=== PATIENT | female | born 1980 | race Caucasian/White ===

== ENCOUNTER 2020-06-02 09:23 | Outpatient (CLI) | payer OTHER, SELFPAY ==
--- NOTE | ~2020-06-02 | CT_ITS ---
EXAMINATION: CT soft tissue neck chest w DATE: 06/02/2020 10:05 INDICATION: Localized enlarged lymph nodes. TECHNIQUE: Computed tomography (CT) of the neck and chest was performed with 75 mL Omnipaque-350 intr avenous contrast. Automated exposure control and iterative reconstruction technique were employed. Th e dose-length product was 631.85 mGy-cm. COMPARISON: Abdomen ultrasound 10/02/2009 FINDINGS: NECK CT: There are no pathologically enlarged lymph nodes. There is mild plaque in the proximal inter nal carotid arteries with 0% stenosis relative to normal distal artery lumen diameters. There is mild mucosal thickening in the maxillary sinuses. The mastoid air cells are normal. There is moderate cer vical spondylosis. CHEST CT: There is mild dependent atelectasis bilaterally. No pleural effusion. The heart size is nor mal. No pericardial effusion. There are no pathologically enlarged lymph nodes. Partially visualized is a 3.1 cm hyperenhancing mass in left hepatic lobe. There is mild thoracic spondylosis. IMPRESSION: 1. No lymphadenopathy. 2. Partially visualized 3.1 cm hyperenhancing liver mass that was not seen on the prior ultrasound. T he differential diagnosis includes focal nodular hyperplasia, hemangioma, and less likely malignancy. Abdomen MRI without and with contrast is recommended. Reviewed, dictated and finalized at location A. IMPRESSION: 1. No lymphadenopathy. 2. Partially visualized 3.1 cm hyperenhancing liver mass that was not seen on t prior ultrasound. The differential diagnosis includes focal nodular hyperpla anand, hemangioma, and less likely malignancy. Abdomen MRI without and with contr ast is recommended.
== END 2020-06-02 09:24 | disposition home or self-care (01) ==
PROVIDERS: PCP Family Medicine; Visit Provider Family Medicine
DX: R59.0 Localized enlarged lymph nodes (principal)
CPT/HCPCS: 70491; 71260; Q9967

== ENCOUNTER 2020-06-18 07:56 | Outpatient (CLI) | payer OTHER, SELFPAY ==
--- NOTE | ~2020-06-18 | MR_ITS ---
EXAMINATION: MR abdomen wo/w con DATE: 06/18/2020 09:26 INDICATION: Liver mass. TECHNIQUE: Magnetic resonance imaging (MRI) of the abdomen was performed without and with 14 mL Multi Harlan intravenous contrast. Sequences included coronal T2-weighted FS FSE, coronal and axial FS FIEST A, axial T2-weighted FSE, coronal LAVA-flex, axial STIR FSE, axial DWI, axial dual-echo T1-weighted F SPGR, and axial LAVA. Postcontrast sequences included coronal LAVA-flex and a time course of axial LA VA. COMPARISON: CT chest 06/02/2020 FINDINGS: In left hepatic lobe, there is a 3.1 x 2.0 cm hyperenhancing mass without washout that demonstrates f aintly increased T2-weighted signal intensity. The gallbladder, spleen, pancreas, adrenal glands, and kidneys are normal. There are no dilated loops of bowel. There are no pathologically enlarged lymph nodes. There is no free intraperitoneal fluid. IMPRESSION: 1. 3.1 cm liver mass, which may be focal nodular hyperplasia or less likely an adenoma. Reviewed, dictated and finalized at location B.
[2020-06-18 08:50] LABS: Estimated Glomerular Filt Rate > 60
== END 2020-06-18 07:57 | disposition home or self-care (01) ==
PROVIDERS: PCP Family Medicine; Visit Provider Family Medicine
DX: R16.0 Hepatomegaly, not elsewhere classified (principal)
CPT/HCPCS: 36415; 74183; A9577

== ENCOUNTER 2021-02-16 08:43 | Outpatient (CLI) | payer OTHER, SELFPAY ==
--- NOTE | ~2021-02-16 | US_ITS ---
EXAMINATION: US right upper quadrant DATE: 02/16/2021 09:07 INDICATION: Focal nodular hyperplasia TECHNIQUE: Multiple grayscale and Doppler ultrasound images of the abdomen were obtained. COMPARISON: MRI, 06/18/2020 FINDINGS: The head, body, and tail of the pancreas are normal. There is a stable 2.7 cm isoechoic mas s of the left hepatic lobe corresponding to the known liver mass. The liver is otherwise normal with normal echogenicity and echotexture. No surface nodularity. Normal hepatopetal flow in the main anayeli l vein. There is a 4 mm immobile mass of the gallbladder, consistent with a polyp. The normal common bile duct measures 2 mm. There was no sonographic Stone sign. IMPRESSION: 1. Stable mass of the left hepatic lobe, consistent with focal nodular hyperplasia or adenoma. 2. 4 mm polyp of the gallbladder. Reviewed, dictated and finalized at location A. IMPRESSION: 1. Stable mass of the left hepatic lobe, consistent with focal nodular hyperpla anand or adenoma. 2. 4 mm polyp of the gallbladder.
== END 2021-02-16 08:44 | disposition home or self-care (01) ==
PROVIDERS: PCP Family Medicine; Visit Provider Internal Medicine Gastroenterology
DX: K76.89 Other specified diseases of liver (principal); K82.4 Cholesterolosis of gallbladder
CPT/HCPCS: 76705

== ENCOUNTER 2023-04-29 16:12 | Emergency (ER) | payer OTHER, SELFPAY ==
[2023-04-29 16:20] VITALS: BP 113/71; PULSE 59; RESP 16; TEMP 36.3; O2SAT 100
--- NOTE | 2023-04-29 16:40 | ED.FEMALEGU ---
HPI - Female Genitourinary General Chief complaint: Urogenital-Female Stated complaint: Female Urogenital Time Seen by Provider: 04/29/23 16:29 Source: patient and RN notes reviewed Mode of arrival: ambulatory Limitations: no limitations History of Present Illness HPI Narrative: Patient presents today complaining of urgency since yesterday with hematuria and mild dysuria that started this afternoon. Denies abdominal pain, fever, nausea or vomiting. She has tried no [id number] medication for symptoms prior to arrival. Related Data Home Medications Medication Instructions Recorded Confirmed cetirizine 10 mg tablet (Zyrtec) 10 mg PO DAILY PRN Allergy Symptoms 11/20/20 04/29/23 Allergies Allergy/AdvReac Type Severity Reaction Status Date / Time Penicillins AdvReac Mild Rash Verified 04/29/23 16:15 Sulfa (Sulfonamide AdvReac Mild rash Verified 04/29/23 16:15 Antibiotics) Review of Systems Review of Systems: CONSTITUTIONAL: Denies body aches, fever, chills, or sweats. EYES: Denies visual changes, redness, or discharge. ENT: Denies rhinorrhea, congestion, sore throat, or otalgia. CARDIOVASCULAR: Denies chest pain, palpitations, or edema. RESPIRATORY: Denies cough or dyspnea. GASTROINTESTINAL: Denies abdominal pain, nausea, vomiting, or diarrhea. GENITOURINARY: + urgency, hematuria, dysuria SKIN: Denies rash, itching, or wounds. MUSCULOSKELETAL: Denies back pain, joint pain, or myalgia. NEUROLOGIC: Denies headache, numbness, tingling, or weakness. PSYCH: Denies depression or anxiety. 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 Please see nursing chart for further information. There is no relevant family history pertinent to the presenting complaint Exam Narrative: GENERAL: Well-appearing, well-nourished, and in no acute distress. HEAD: Normocephalic, atraumatic. EYES: EOMI. No redness or drainage. Conjunctivae normal. ENT: Mucous membranes pink and moist. NECK: Normal AROM. CHEST: No respiratory distress. Clear to auscultation. HEART: Regular rate and rhythm. No murmur appreciated. Normal peripheral pulses. ABDOMEN: Soft, nontender, nondistended, normal active bowel sounds. MUSCULOSKELETAL: No bony tenderness. EXTREMITIES: Normal range of motion. No edema. SKIN: Warm, dry, no rash. Capillary refill normal. Normal skin turgor. NEURO: No focal deficits. Alert and oriented x3. Gait steady. PSYCH: Normal affect. No signs of depression or anxiety. Course Course Level of Care: Express Care Visit Vital Signs Vital signs: Vital Signs Temperature 97.3 F L 04/29/23 16:20 Pulse Rate 59 L 04/29/23 16:20 Respiratory Rate 16 04/29/23 16:20 Blood Pressure 113/71 04/29/23 16:20 Pulse Oximetry 100 04/29/23 16:20 Oxygen Delivery Room Air 04/29/23 16:20 Temperature 97.3 F L 04/29/23 16:20 Puls
== END 2023-04-29 16:46 | disposition home or self-care (01) ==
PROVIDERS: Emergency Provider Nurse Practitioner
DX: N30.01 Acute cystitis with hematuria (principal)
CPT/HCPCS: 81003; 87086; 99213; G0463

== ENCOUNTER 2025-05-10 08:26 | Outpatient (CLI) | payer OTHER, SELFPAY ==
--- NOTE | ~2025-05-10 | MMUS_ITS ---
EXAMINATION: US_MAGSEEDLT_US, MM post biopsy diagnostic LT INDICATION: 45-year-old woman with a history of a discordant biopsy of the left breast who presents f or magseed localization TECHNIQUE: The procedure for a ultrasound-guided Magseed localization was discussed with the patient. Risks discussed included bleeding, infection and nontargeted localization. The patient verbalized un derstanding and agreed to proceed. The time out was performed to verify the patient's name, date of , and laterality of the procedu res. The skin overlying the left breast was prepared in usual sterile fashion. Utilizing ultrasound guidan ce the magseed introducer was advanced into the left breast, targeting the previously placed microcli p. Confirmation of Magseed position was achieved subsequent mediolateral and craniocaudal mammogram. The patient tolerated procedure without immediate complication. A sterile dressing was applied BREAST PARENCHYMAL COMPOSITION: The breasts are heterogeneously dense, which may obscure small masses . IMPRESSION: Technically successful ultrasound-guided left breast Magseed localization, with post procedure mammog emmett for marker placement. Reviewed, dictated and finalized at location A. IMPRESSION: Technically successful ultrasound-guided left breast Magseed localization, with post procedure mammogram for marker placement.
--- OUTSIDE RECORDS SUMMARY | 2025-05-10 08:33 | XMS_ITS | Clinical Summary ---
Author Organization [facility] Address [address] [place] [address] Care Team Providers Care Gas Blender Name Role Phone Aura Juan MD Primary Care Provider [phone] Allergies Active Allergy Reactions Criticality Noted Date Comments Penicillins Unknown 10/03/2019 Told had reaction as child. Sulfa Antibiotics Rash Low 04/10/2025 Medications No known medications Active Problems Problem Noted Date Diagnosed Date Focal nodular hyperplasia of liver 04/10/2025 Overview (04/10/2025): Pt had us /CT and MRI in 2019 which showed 3.1cm liver mass Encounters Date Type Department Care Team Description 05/03/2025 Results Follow-Up [facility] Family & Internal Medicine [address] [phone] Aura Juan MD US ABD LIMITED 05/01/2025 7:51 AM CDT - 05/01/2025 11:59 PM CDT Hospital Encounter [facility] [address] [place] [address] [phone] Aura Juan MD Discharge Disposition: Home or Self Care (Routine Discharge) 05/01/2025 Travel 04/24/2025 Results Follow-Up [facility] Family & Internal Medicine [address] [address] Aura Juan MD CBC W/DIFF AUTOMATED, COMPREHENSIVE METABOLIC PANEL, HEMOGLOBIN, GLYCOSYLATED, Additional followed-up results: 2 04/18/2025 Scan [facility] SRVCS Scanned, [facility] 04/10/2025 10:20 AM CDT Office Visit [facility] Family & Internal Medicine [address] [address] Aura Juan MD New Patient (Est care, had mamm done; getting biopsy done 04/13/25) 04/10/2025 Travel 03/17/2025 8:29 AM CDT - 03/17/2025 11:59 PM CDT Hospital Encounter [facility] [id number] [place] [id number] Carina Philippe MD Discharge Disposition: Home or Self Care (Routine Discharge) 03/17/2025 Travel 02/15/2025 3:30 PM CDT - 02/15/2025 11:59 PM CDT Hospital Encounter [facility] [address] [place] [id number] Carina Philippe MD Discharge Disposition: Home or Self Care (Routine Discharge) 02/15/2025 Travel from Last 3 Months Immunizations Immunization Administration Dates Next Due Influenza Adult (Generic) 09/27/2018 MODERNA COVID-19 (12+) MRNA, LNP-S, PF, 100 MCG/ 0.5 ML DOSE 01/11/2021,12/14/2020 Tdap (Adacel) 04/10/2025 Family History Medical History Relation Comments Cancer Father prostate Cancer Paternal Grandfather Heart Disease Paternal Grandfather Breast Cancer Neg Hx Relation Status Comments Father Alive Paternal Grandfather Alive Social History Tobacco Use Types Packs/Day Years Used Date Smoking Tobacco: Never Passive Smoke Exposure: Never Smokeless Tobacco: Never Tobacco Cessation:Counseling Given: No Alcohol Use Standard Drinks/Week Comments Never 0 (1 standard drink = 0.6 oz pur e alcohol) PHQ-2 Answer Date Recorded Patient Health Questionnaire-2 Score 0 04/10/2025 Comments No Sex and Gender Information Value Date Recorded Sex Assigned at Female 01/17/2025 3:56 PM CDT 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 Gender Identity Female 04/10/2025 10:29 AM CDT Sexual Orientation Not on file Last Filed Vital Signs Vital Sign Reading Time Taken Comments Blood Pressure 117/81 04/10/2025 10:24 AM CDT Pulse 60 04/10/2025 10:24 AM CDT Temperature 36.9 C (98.5 F) 04/10/2025 10:24 AM CDT Respiratory Rate 16 04/10/2025 10:24 AM CDT Oxygen Saturation 98% 04/10/2025 10:24 AM CDT Inhaled Oxygen Concentration - - Weight 75.1 kg (165 lb 9.6 oz) 04/10/2025 10:24 AM CDT Height 162.6 cm (5' 4) 04/10/2025 10:24 AM CDT Body Mass Index 28.43 04/10/2025 10:24 AM CDT Plan of Treatment Upcoming Encounters Date Type Department Care Team (Late st Contact Info) Description 04/10/2026 10:00 AM CDT Office Visit [facility] Family & Internal Medicine - [address] [phone] [place] [id number] [facility] [address] [place] [address] Health Maintenance Due Date Last Done Comments Cervical Cancer Screening Pap Smear (Age 30 to 64) Every 3 Years 1979 Colorectal Cancer Screening Colonoscopy (10 Years) 1979 Hepatitis C 1997 Hepatitis B Vaccines (1 of 3 - 19+ 3-dose series) 1998 Cervical Cancer Screening Pap with HPV Testing (Age 30 to 64) Every 5 Years 2009 Cervical Cancer Screening with HPV 2009 COVID-19 Vaccine ( season) 2024 01/11/2021, 12/14/2020 Annual Physical 04/10/2026 04/10/2025 Mammogram Screening 03/17/2027 03/17/2025, 02/15/2025, 02/05/2024, Additional history exists DTaP, Tdap and Td Vaccines (2 - Td or Tdap) 04/10/2035 04/10/2025 PHQ-2 ([facility] [place]) Completed 04/10/2025 Meningococcal B Vaccine Aged Out No l onger eligible based on patient's age to complete this topic Meningococcal Vaccine Aged Out No eva ronni eligible based on patient's age to complete this topic Pneumococcal Vaccine: Pediatrics (0 to 5 Years) and At-Risk Patients (6 to 49 Years) Aged Out No longer eligible based on patient's age to complete this topic RSV Immunizations Under 20 Months Aged Out No longer eligible based on patient's age to complete this topic Procedures Procedure Name Priority Date/Time Associated Diagnosis Comments US ABD LIMITED Routine 05/01/2025 8:28 AM CDT Focal nodular hyperplasia of liver Elevated LFTs TSH W/REFLEX Routine 04/21/2025 12:42 PM CDT Encounter to establish care with new provider Thyroid disorder screening LIPID PANEL Routine 04/21/2025 12:42 PM CDT Encounter to establish care with new provider HEMOGLOBIN, GLYCOSYLATED Routine 04/21/2025 12:42 PM CDT Encounter to establish care with new provider Screening for diabetes mellitus (DM) COMPREHENSIVE METABOLIC PANEL Routine 04/21/2025 12:42 PM CDT Encounter to establish care with new provider CBC W/DIFF AUTOMATED Routine 04/21/2025 12:42 PM CDT Encounter to establish care with new provider MG DIAG W JENNIFER LT DIGI Routine 5 10:17 AM CDT Abnormal mammogram US BREAST LT BIRAD LTD Routine 5 9:49 AM CDT Abnormal mammogram MG SCREENING W JENNIFER JOMAR DIGI Routine 02/15/2025 3:56 PM CDT Visit for screening mammogram from Last 3 Months Results * US ABD LIMITED (05/01/2025 8:28 AM CDT) Anatomical Region Laterality Modality Abdomen Ultrasound 05/03/2025 8:10 AM CDT Impressions 05/03/2025 8:20 AM CDT IMPRESSION: 1. Slight interval increase in size of the left hepatic lobe mass. This is previously been evaluated with MRI and ultrasound in 2019 and 2020. This is increased in size. Characterization with Eovist liver MRI is recommended. This study is not available at all institutions. 2. 4 mm gallbladder polyp. No further follow-up is necessary. Ordered By: AURA JUAN Interpreted By: Avery Kraus MD, 05/03/2025 8:10 AM Narrative 05/03/2025 8:20 AM CDT [facility] [address] [facility] [address] [place] [address] Procedure(s): US ABD LIMITED Date of service: 05/01/2025 7:53 AM Provided clinical information: 45 years, Female, h/o nodular liver lesion with elevated LFT Procedure and materials: Rk scale and Doppler Doppler images of the right upper quadrant are obtained. Comparison studies: Ultrasound February 16, 2021. MRI June 18, 2020. Findings: The visualized pancreas is unremarkable. No pancreatic ductal dilatation. Visualized IVC is unremarkable. Liver is homogeneous in echotexture. Liver measures approximately 16.2 cm. Portal venous flow is hepatopedal. Hepatic veins are patent. Within lateral segment of left lobe of the liver there is a mass that is present. This is isoechoic to mildly hypoechoic relative to the surrounding hepatic parenchyma. This measures 2.4 x 2 x 3.4 cm. This previously measured 2.7 x 1.9 x 2.7 cm. There has been slight interval increase in size. There is suggestion of central vascularity that is present. This is was suggested to be a hepatic adenoma or focal nodule hyperplasia on prior ultrasound of February 2021. For improved characterization MRI with Eovist recommended. Gallbladder is present without evidence of cholelithiasis or cholecystitis. There is a 4 mm gallbladder polyp. Common bile duct is 5 mm. This is not dilated. Right kidney measures 11.5 x 3.6 x 5.2 cm. No hydronephrosis. No focal right renal lesion. Procedure Note Avery Kraus MD - 05/03/2025 [facility] [address] [address] Procedure(s): US ABD LIMITED Date of service: 05/01/2025 7:53 AM Provided clinical information: 45 years, Female, h/o nodular liver lesionwith elevated LFT Procedure and materials: Rk scale and Doppler Doppler images of theright upper quadrant are obtained. Comparison studies: Ultrasound February 16, 2021. MRI June 18, 2020. Findings: The visualized pancreas is unremarkable. No pancreatic ductaldilatation. Visualized IVC is unremarkable. Liver is homogeneous in echotexture. Liver measures approximately 16.2cm. Portal venous flow is hepatopedal. Hepatic veins are patent. Within lateral segment of left lobe of the liverthere is a mass that is present. This is isoechoic to mildly hypoechoicrelative to the surrounding hepatic parenchyma. This measures 2.4 x 2 x3.4 cm. This previously measured 2.7 x 1.9 x 2.7 cm. There has been slightinterval increase in size. There is suggestion of central vascularity thatis present. This is was suggested to be a hepatic adenoma or focal nodulehyperplasia on prior ultrasound of February 2021. For improvedcharacterization MRI with Eovist recommended. Gallbladder is present without evidence of cholelithiasis orcholecystitis. There is a 4 mm gallbladder polyp. Common bile duct is 5mm. This is not dilated. Right kidney measures 11.5 x 3.6 x 5.2 cm. No hydronephrosis. No focalright renal lesion. IMPRESSION: 1. Slight interval increase in size of the left hepatic lobe mass. Thisis previously been evaluated with MRI and ultrasound in 2019 and 2020.This is increased in size. Characterization with Eovist liver MRI isrecommended. This study is not available at all institutions. 2. 4 mm gallbladder polyp. No further follow-up is necessary. Ordered By: AURA JUAN Interpreted By: Avery Kraus MD, 05/03/2025 8:10 AM us Aura Juan MD ULTRASOUND Final Result * TSH W/REFLEX (04/21/2025 12:42 PM CDT) TSH 1.96 mIU/L [facility] Comment: Reference Range > or = 20 Years 0.40-4.50 Ranges First trimester 0.26-2.66 Second trimester 0.55-2.73 Third trimester 0.43-2.91 04/21/2025 12:4 2 PM CDT 04/21/2025 12:43 PM CDT Narrative [facility] [facility] - 04/22/2025 4:59 AM CDT FASTING:NO FASTING: NO Resulting Agency Comment Performing Organization Information: Site ID: [id number] Name: [facility] Address: [address] [place] [address] Director: Derek Jj MD Aura Juan MD LABORATORY Final Result [facility] [employer] [address] [facility] [id number] [place] [address], * HEMOGLOBIN, GLYCOSYLATED (04/21/2025 12:42 PM CDT) [facility] HGB A1C 5.3 <5.7 % of total Hgb [facility] [employer] [place] Comment: For the purpose of screening for the presence of diabetes: <5.7% Consistent with the absence of diabetes 5.7-6.4% Consistent with increased risk for diabetes (prediabetes) > or =6.5% Consistent with diabetes This assay result is consistent with a decreased risk of diabetes. Currently, no consensus exists regarding use of hemoglobin A1c for diagnosis of diabetes in children. According to [place] Diabetes Association (ADA) guidelines, hemoglobin A1c <7.0% represents optimal control in non- diabetic patients. Different metrics may apply to specific patient populations. Standards of Medical Care in Diabetes(ADA). 04/21/2025 12:4 2 PM CDT 04/21/2025 12:43 PM CDT Narrative [employer] [facility] - 04/22/2025 4:59 AM CDT FASTING:NO FASTING: NO Resulting Agency Comment Performing Organization Information: Site ID: [id number] Name: [facility] Address: [address] [place] [address] Director: Derek Jj Aura Juan MD LABORATORY Final Result [facility] [place] [address] [place] [address], * (ABNORMAL) COMPREHENSIVE METABOLIC PANEL (04/21/2025 12:42 PM CDT) GLUCOSE 78 65 - 99 mg/dL [facility] [employer] [facility] Comment: Fasting reference interval BUN 16 7 - 25 mg/dL [facility] CREATININE S/P/B 0.79 0.50 - 0.99 mg/dL [employer] [facility] GFR ESTIMATE 93 > OR = 60 mL/min/1. 73m2 [facility] [employer] [facility] BUN CREATININE RATIO SEE NOTE: (calc) [employer] [facility] Comment: Not Reported: BUN and Creatinine are within reference range. SODIUM S/P/B 137 135 - 146 mmol/L [employer] [facility] POTASSIUM S/P/B 4.1 3.5 - 5.3 mmol/L [employer] [facility] CHLORIDE S/P/B 102 98 - 110 mmol/L [employer] [facility] CO2 28 20 - 32 mmol/L [employer] [facility] CALCIUM S/P/B 8.9 8.6 - 10.2 mg/dL [employer] [facility] TOTAL PROTEIN S/P/B 6.7 6.1 - 8.1 g/dL [employer] [facility] ALBUMIN S/P/B 4.2 3.6 - 5.1 g/dL [employer] [facility] GLOBULIN 2.5 1.9 - 3.7 g/dL (calc) [employer] [facility] ALBUMIN/GLOBULI N RATIO 1.7 1.0 - 2.5 (calc) [employer] [facility] BILIRUBIN TOTAL S/P/B 0.4 0.2 - 1.2 mg/dL [facility] [facility] ALKALINE PHOSPHATASE S/P/B 105 31 - 125 U/L [employer] [facility] AST 39(H) 10 - 35 U/L [employer] [facility] ALT 49(H) 6 - 29 U/L [employer] [facility] 04/21/2025 12:4 2 PM CDT 04/21/2025 12:43 PM CDT Narrative [facility] - 04/22/2025 4:59 AM CDT FASTING:NO FASTING: NO Resulting Agency Comment Performing Organization Information: Site ID: [place] Name: [facility] Address: [address] [address] Director: Derek Jj MD Aura Juan MD LABORATORY Final Result [facility] [address] [facility] [place] [address], * LIPID PANEL (04/21/2025 12:42 PM CDT) CHOLESTEROL 168 <200 mg/dL [facility] HDL 66 > OR = 50 mg/dL [facility] TRIGLYCERIDES 74 <150 mg/dL [facility] LDL (CALCULATED) 86 mg/dL (calc) [facility] Comment: Reference range: <100 Desirable range <100 mg/dL for primary prevention; <70 mg/dL for patients with CHD or diabetic patients with > or = 2 CHD risk factors. LDL-C is now calculated using the Sergey-Genevieve calculation, which is a validated novel method providing better accuracy than the Friedewald equation in the estimation of LDL-C. Sergey SS et al. JEANNIE. 2013;310(19): 8889-9139 (http://education.[employer].Enhanced Medical Decisions/faq/JFW385) CHOL/HDL RATIO 2.5 <5.0 (calc) [facility] NON HDL CHOLESTEROL 102 <130 mg/dL (calc) [facility] Comment: For patients with diabetes plus 1 major ASCVD risk factor, treating to a non-HDL-C goal of <100 mg/dL (LDL-C of <70 mg/dL) is considered a therapeutic option. 04/21/2025 12:4 2 PM CDT 04/21/2025 12:43 PM CDT Narrative [facility] - 04/22/2025 4:59 AM CDT FASTING:NO FASTING: NO Resulting Agency Comment Performing Organization Information: Site ID: [place] Name: [facility] Address: [address] [address] Director: Derek Jj MD Aura Juan MD LABORATORY Final Result [facility] [address] [address], * (ABNORMAL) CBC W/DIFF AUTOMATED (04/21/2025 12:42 PM CDT) WBC 8.8 3.8 - 10.8 Thousand/ uL [facility] RBC 4.29 3.80 - 5.10 Million/u L [facility] HGB 13.0 11.7 - 15.5 g/dL [facility] HCT 40.8 35.0 - 45.0 % [facility] MCV 95.1 80.0 - 100.0 fL [facility] MCH 30.3 27.0 - 33.0 pg [facility] MCHC 31.9(L) 32.0 - 36.0 g/dL [facility] Comment: For adults, a slight decrease in the calculated MCHC value (in the range of 30 to 32 g/dL) is most likely not clinically significant; however, it should be interpreted with caution in correlation with other red cell parameters and the patient's clinical condition. RDW 12.0 11.0 - 15.0 % [facility] PLT 273 140 - 400 Thousand/ uL [facility] MPV 10.6 7.5 - 12.5 fL [facility] ABS. NEUTROPHILS 5,729 1,500 - 7,800 cells/uL [facility] ABS. LYMPHOCYTES 2,350 850 - 3,900 cells/uL [facility] ABS. MONOCYTES 519 200 - 950 cells/uL [facility] ABS. EOSINOPHILS 141 15 - 500 cells/uL [facility] ABS. BASOPHILS 62 0 - 200 cells/uL [facility] SEG NEUTROPHILS 65.1 % [facility] LYMPHOCYTES 26.7 % [facility] MONOCYTES 5.9 % [facility] EOSINOPHILS 1.6 % [facility] BASOPHILS 0.7 % [facility] 04/21/2025 12:4 2 PM CDT 04/21/2025 12:43 PM CDT Narrative [facility] - 04/22/2025 4:59 AM CDT FASTING:NO FASTING: NO Resulting Agency Comment Performing Organization Information: Site ID: [place] Name: [place] Address: [address] [address] Director: Derek Jj MD Aura Juan MD LABORATORY Final Result [facility] [address] [address], [place] * MG DIAG W JENNIFER LT DIGI (03/17/2025 10:17 AM CDT) Anatomical Region Laterality Modality Breast Left Mammography, Rad iographic Imaging 03/17/2025 3:23 PM CDT Impressions 03/17/2025 3:28 PM CDT ===== IMPRESSION: ===== 1. Lesion at the 6:00 position of the left breast. Biopsy recommended. Assessment: ACR BI-RADS 4 - SUSPICIOUS FINDING(S) - BIOPSY SHOULD BE CONSIDERED Recommendation: 1:Biopsy should be considered Left Comments: Findings discussed with the patient following completion of exam. Ordered By: CARINA CAPELLAN Interpreted By: Ivett Mcgrath, 03/17/2025 3:23 PM Narrative 03/17/2025 3:28 PM CDT [facility] [address] [place] [address] EXAMINATION: Digital left diagnostic mammogram with 3-D tomography. Left breast ultrasound EXAM DATE/TIME: 03/17/2025 8:35 AM REASON FOR EXAM: abnormal mammogram COMPARISON: 02/15/2025 TECHNIQUE: Digital diagnostic mammography of the left breast was performed in addition to 3-D Tomosynthesis technique. This study was read with the assistance of a computer-aided detection system. TISSUE DENSITY: The breasts are heterogeneously dense, which may obscure small masses. Findings: Previously identified nodule within the inferior left breast is again identified. No malignant microcalcifications or architectural distortion. Left breast ultrasound . Imaging at the 6:00 position of the left breast. 5 to 6 cm from the nipple. There is an ill-defined hypoechoic lesion. Irregular borders. No shadowing. Mild abnormal color flow.. Vertically oriented. Measures 4.0 x 5.0 x 7.4 mm. us Carina Capellan MD MAMMO Final Resu lt * US BREAST LT BIRAD LTD (03/17/2025 9:49 AM CDT) Anatomical Region Laterality Modality Breast Left Ultrasound 03/17/2025 3:23 PM CDT Impressions 03/19/2025 6:49 AM CDT ===== IMPRESSION: ===== 1. Lesion at the 6:00 position of the left breast. Biopsy recommended. Assessment: ACR BI-RADS 4 - SUSPICIOUS FINDING(S) - BIOPSY SHOULD BE CONSIDERED Recommendation: 1:Biopsy should be considered Left Comments: Findings discussed with the patient following completion of exam. Ordered By: CARINA CAPELLAN Interpreted By: Ivett Mcgrath, 03/17/2025 3:23 PM Narrative 03/19/2025 6:49 AM CDT [facility] [address] [place] [address] EXAMINATION: Digital left diagnostic mammogram with 3-D tomography. Left breast ultrasound EXAM DATE/TIME: 03/17/2025 8:35 AM REASON FOR EXAM: abnormal mammogram COMPARISON: 02/15/2025 TECHNIQUE: Digital diagnostic mammography of the left breast was performed in addition to 3-D Tomosynthesis technique. This study was read with the assistance of a computer-aided detection system. TISSUE DENSITY: The breasts are heterogeneously dense, which may obscure small masses. Findings: Previously identified nodule within the inferior left breast is again identified. No malignant microcalcifications or architectural distortion. Left breast ultrasound . Imaging at the 6:00 position of the left breast. 5 to 6 cm from the nipple. There is an ill-defined hypoechoic lesion. Irregular borders. No shadowing. Mild abnormal color flow.. Vertically oriented. Measures 4.0 x 5.0 x 7.4 mm. us Carina Capellan MD ULTRASOUND Final Resu lt * MG SCREENING W JENNIFER JOMAR DIGI (02/15/2025 3:56 PM CDT) Anatomical Region Laterality Modality Breast Bilateral Mammography 02/16/2025 10:3 1 AM CDT Impressions 02/16/2025 11:00 AM CDT ===== IMPRESSION: ===== 1. Additional imaging of left breast. This site is different from the prior area of diagnostic workup. Assessment: ACR BI-RADS 0 - INCOMPLETE: NEEDS ADDITIONAL IMAGING EVALUATION Recommendation: 1:Additional Imaging Left Comments: Ordered By: CARINA CAPELLAN Interpreted By: Ivett Mcgrath, 02/16/2025 10:31 AM Narrative 02/16/2025 11:00 AM CDT [address] [address] EXAMINATION: Digital bilateral screening mammogram with 3-D tomosynthesis EXAM DATE/TIME: 02/15/2025 3:33 PM REASON FOR EXAM: scr COMPARISON: 01/14/2024.. July 01, 2022 Technique: Digital screening mammography of both breasts was performed in addition to 3-D Tomosynthesis technique. This study was read with the assistance of a computer-aided detection system. Tissue density: The breasts are heterogeneously dense, which may obscure small masses. Findings: Development of well-defined nodule within the medial and inferior left breast. Middle depth. Best seen on 3-D images. No malignant microcalcifications. No skin thickening or nipple retraction. us Carina Capellan MD MAMMO Final Resu lt from Last 3 Months Insurance [facility] [facility] Care Teams Gas Blender Relationship Specialty [place] [address] [facility] [address] [place] [address] PCP - General INTERNAL MEDICINE 04/07/25
--- OUTSIDE RECORDS SUMMARY | 2025-05-10 08:33 | XMS_ITS | Clinical Summary ---
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 This disclosure is being madepursuant to the Care Everywhere program and may not contain all information available regarding this patient. Last updated 18.[facility] Allergies Active Allergy Reactions Criticality Noted Date Comments Penicillins Unknown 10/03/2019 Told had reaction as child. Medications * Be aware that medications may not be up to date on this document. Alwaysverify current medications with the patient. 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 Gender Identity Not on file Sexual Orientation Not on file Last Filed Vital Signs Vital Sign Reading Time Taken Comments Blood Pressure 120/80 10/03/2019 4:48 PM GREEN PRIZE PACKER Pulse 83 10/03/2019 4:48 PM GREEN PRIZE PACKER Temperature 36.6 C (97.9 F) 10/03/2019 4:48 PM GREEN PRIZE PACKER Respiratory Rate 16 10/03/2019 4:48 PM GREEN PRIZE PACKER Oxygen Saturation 99% 10/03/2019 4:48 PM GREEN PRIZE PACKER Inhaled Oxygen Concentration - - Weight 72.6 kg (160 lb) 10/03/2019 4:48 PM GREEN PRIZE PACKER Height 162.6 cm (5' 4) 10/03/2019 4:48 PM GREEN PRIZE PACKER Body Mass Index 27.46 10/03/2019 4:48 PM GREEN PRIZE PACKER Plan of Treatment Health Maintenance Due Date Last Done Comments COLOGUARD (AGES 45-75) - COL ON CA SCREENING 1979 COLON MONITORING 1979 COLONOSCOPY - COLON CA SCREENING 1979 CT COLONOGRAPHY - COLON CA SCREENING 1979 Colorectal Cancer Screening 1979 FIT - COLON CA SCREENING 1979 FLEX SIG - COLON CA SCREENING 1979 LIPID TESTING 1979 MAMMOGRAM 1979 HIV SCREENING 1994 HEPATITIS C SCREENING 03/13/1997 DTAP/TDAP/TD VACCINES (1 - Tdap) 1998 HEPATITIS B VACCINE (1 of 3 - 19+ 3-dose series) 1998 SCREENING FOR DIABETES 10/03/2019 COVID-19 VACCINE (1 - 2023-2 5 season) 2024 DEPRESSION SCREENING 11/09/2024 INFLUENZA VACCINE (#1) 2025 ZOSTER VACCINE (1 of 2) 2029 HIB VACCINE Aged Out No longer eligi ble based on patient's age to complete this topic HPV VACCINE Aged Out No longer eligi ble based on patient's age to complete this topic MENINGOCOCCAL (Group B) VACC INE SHARED DECISION-MAKING Aged Out No longer eligibl e based on patient's age to complete this topic MENINGOCOCCAL GROUPS A/C/Y/W VACCINE Aged Out No longer eligible b ased on patient's age to complete this topic PNEUMOCOCCAL VACCINE Aged Out No long er eligible based on patient's age to complete this topic Insurance [employer]
--- OUTSIDE RECORDS SUMMARY | 2025-05-10 08:33 | XMS_ITS | Encounter Summary ---
Author Organization [facility] Address [address] [place] [address] Care Team Providers Care Truss Puller Helper Name Role Phone Carol Juan MD Primary Care Provider [phone] Reason for Referral * Imaging (Routine) - Closed Specialty Diagnoses / Procedures Referred By Contac t Referred To Contact RADIOLOGY Diagnoses Focal nodular hyperplasia of liver Elevated LFTs [place] [address] [place] [address] Phone: tel: fax: Referral ID Status Reason Start Date Expiration Date Visits Re quested Visits Authorized [id number] Closed 04/24/2025 04/24/2026 1 1 Encounter Details Date Type Department Care Team (Latest Contact Info) Description 04/24/2025 Results Follow-Up [facility] Family & Internal Medicine - [address] [phone] [place] [address] [place] [address] CBC W/DIFF AUTOMATED, COMPREHENSIVE METABOLIC PANEL, HEMOGLOBIN, GLYCOSYLATED, Additional followed-up results: 2 Social History Tobacco Use Types Packs/Day Years Used Date Smoking Tobacco: Never Passive Smoke Exposure: Never Smokeless Tobacco: Never Alcohol Use Standard Drinks/Week Comments Never 0 (1 standard drink = 0.6 oz pur e alcohol) PHQ-2 Answer Date Recorded Patient Health Questionnaire-2 Score 0 04/10/2025 Comments No Sex and Gender Information Value Date Recorded Sex Assigned at Female 01/17/2025 3:56 PM CDT 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 Pt has past history of liver lesion. Will order liver us to check on that. Can you please add hepatitis panel as well in lab documented in this encounter Plan of Treatment Upcoming Encounters Date Type Department Care Team (Late st Contact Info) Description 04/10/2026 10:00 AM CDT Office Visit [facility] Family & Internal Medicine [facility] [id number] [place] [phone] Carol Juan MD [address] [place] [address] [place] [address] documented as of this encounter Results * US ABD LIMITED (05/01/2025 8:28 [...] No further follow-up is necessary. Ordered By: CAROL JUAN Interpreted By: Avery Kraus MD, 05/03/2025 8:10 AM Narrative 05/03/2025 8:20 AM CDT [facility] [address] [place] [id number] Procedure(s): US ABD LIMITED Date of service: [...] Procedure Note Avery Kraus MD - 05/03/2025 [facility] [address] [place] [address] Procedure(s): US ABD LIMITED Date of service: [...] No further follow-up is necessary. Ordered By: CAROL JUAN Interpreted By: Avery Kraus MD, 05/03/2025 8:10 AM Carol Juan MD ULTRASOUND Final Result documented in this encounter Visit Diagnoses Diagnosis Focal nodular hyperplasia of liver- Primary Other specified disorders of liver Elevated LFTs Other abnormal blood chemistry Focal nodular hyperplasia of liver Other specified disorders of liver Elevated LFTs Other abnormal blood chemistry documented in this encounter Additional Health Concerns Assessment Noted Time PHQ-9 Depression Total Score: 0 04/10/20 11:38 AM CDT documented as of this encounter Care Teams Truss Puller Helper Relationship Specialty [place] [address] [facility] [address] [place] [address] PCP - General INTERNAL MEDICINE 5/30/25 documented as of this encounter
--- OUTSIDE RECORDS SUMMARY | 2025-05-10 08:33 | XMS_ITS | Patient Health Record ---
Author Organization [facility] Address [address] [place], [place] [id number] Care Team Providers Care Medical Physiologist Name Role Phone CRISTINA Murray Unavailable [phone] Layla Gutierrez Unavailable Unavailable Reason For Referral No Information Plan Of Treatment No Information Insurance Providers Payer Name Payer Address Payer Phone Subscriber Number Group Number Insured Name Patient Relationship to Insured Coverage Start Date Coverage End Date Aet[employer] [address] [place] [address] [id number] NORMA MARQUEZ Spouse - patient is the spouse of the insured
== END 2025-05-10 08:27 | disposition home or self-care (01) ==
PROVIDERS: PCP Internal Medicine; Visit Provider Surgery
DX: N63.25 Unspecified lump in the left breast, overlapping quadrants (principal); R92.8 Other abnormal and inconclusive findings on diagnostic imaging of breast
CPT/HCPCS: 19285; 77065; A4648

== ENCOUNTER 2025-05-24 02:40 | Day surgery (SDC) | payer OTHER, SELFPAY ==
[2025-05-17 09:39] VITALS: BMI 28.3
--- NOTE | 2025-05-17 09:44 | PC.NURSE ---
Report to the Outpatient Waiting Room, entrance under the green pavilion located off [address], at time _0630_ on date _05/24/25__. Planned Procedure Time: _0830__.? Time changes happen often and if your time is changed the preop area will call you the afternoon before. - You and your visitor will be asked to self-screen and do not enter if you have any COVID symptoms. Please call surgeon if you need to reschedule. - A mask is optional within the hospital at this time. Patients may have clear liquids (water, carbonated beverages, clear teas, apple juice) until 3 hours prior to surgery with a maximum of 20 ounces. - No food from midnight until time of surgery and no smoking, or chewing tobacco (or any form of nicotine). No chewing gum, candy or mints. - Infants may have breast milk until 4 hours before surgery, infant formula 6 hours prior to surgery. - Children will be allowed to drink immediately following surgery.? If applicable, please bring a bottle or sippy cup to assist with drinking. Juice, water, soda, and popsicles are readily available.? For infants on formula, please bring formula the day of surgery.? Pacifiers are allowed. Take only the following medications with a SIP of water on the morning of surgery: ____NONE DO NOT STOP ANY OF YOUR OTHER PRESCRIPTION MEDICATIONS PRIOR TO SURGERY EXCEPT THE FOLLOWING Hold all vitamins and supplements for 3 days per anesthesiologist. Medications to discontinue per physician Date to take last dose Please no make-up, nail south sudanese, hairspray, perfume, deodorant, or body powder the day of surgery.? No jewelry (including any body piercings) or valuables the day of surgery, leave them at home.? Please take a shower or bath the night before, or the morning of, surgery with an antibacterial soap.? Wear comfortable, loose fitting clothing.? Children are encouraged to wear pajamas. - Jewelry must be removed prior to entering the operating room.? Rings and piercings that are not removed may be cut off. - The hospital will not accept responsibility for valuables.? - Please leave all valuables, including medications, at home the day of surgery. If you are going home after surgery, a licensed bookmobile driver must drive you home.? - NO public transportation without another adult if you receive anesthesia. - We recommend that an adult stay with you for 24 hours following discharge. - We also recommend that you do not drive, make important decision, drink alcoholic beverages, or take any drugs that were not prescribed by your health care provider for at least 24 hours after your discharge time. For Pediatric surgeries, we recommend two adults accompany the child home. Follow any additional instructions given to you from your surgeon. Telephone instructions given to PATIENT__and asked if any additional questions and then verbalized understanding. Patient advised to call surgeon office or pre surgery nurse liaison [phone] if any additional questions.
[2025-05-24] VITALS (7 sets, daily range): BP systolic 108–126; BP diastolic 63–77; PULSE 57–72; RESP 11–20; TEMP 35.9–36.2; O2SAT 93–100
--- NOTE | ~2025-05-24 | MM_ITS ---
MM_FAXITRON_MG 05/24/2025 09:23 Indication: Left breast lumpectomy Procedure: Specimen radiograph Comparison: 05/10/2025 Findings: Specimen radiograph demonstrates tissue marker and maxillary device. No discrete masses or calcifications are seen. Impression: 1: Specimen contains tissue marker and magseed device. Reviewed, dictated and finalized at location B. Impression: 1: Specimen contains tissue marker and magseed device.
--- OUTSIDE RECORDS SUMMARY | 2025-05-24 02:44 | XMS_ITS | Encounter Summary ---
Author Organization [facility] Address [address] [place] [address] Care Team Providers Care Plumber'S Helper Name Role Phone Carol Juan MD Primary Care Provider [phone] Reason for Referral * Imaging (Routine) - Closed Specialty Diagnoses / Procedures Referred By Contac t Referred To Contact RADIOLOGY Diagnoses Focal nodular hyperplasia of liver Elevated LFTs [place] [address] [place] [address] Phone: tel: fax: Referral ID Status Reason Start Date Expiration Date Visits Re quested Visits Authorized [id number] Closed 04/24/2025 04/24/2026 1 1 Encounter Details Date Type Department Care Team (Latest Contact Info) Description 04/24/2025 Results Follow-Up [facility] Family & Internal Medicine - [address] [phone] [place] [address] [place] [address] CBC W/DIFF AUTOMATED, COMPREHENSIVE METABOLIC PANEL, HEMOGLOBIN, [...] PM CDT 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 [place] [id number] Procedure(s): US ABD LIMITED Date of service: [...] Procedure Note Avery Kraus MD - 05/03/2025 [facility] [address] [place] [address] Procedure(s): US ABD LIMITED Date of service: [...] documented as of this encounter Care Teams Plumber'S Helper Relationship Specialty [place] [address] [facility] [address] [place] [address] PCP - General INTERNAL MEDICINE 5/30/25 documented as of this encounter
--- OUTSIDE RECORDS SUMMARY | 2025-05-24 02:44 | XMS_ITS | Patient Health Record ---
Author Organization [facility] Address [address] [place], [place] [id number] Care Team Providers Care Talent Acquisition Sourcer Name Role Phone CRISTINA Murray Unavailable [phone] Layla Gutierrez Unavailable Unavailable Reason For Referral No Information Plan Of Treatment No Information Insurance Providers Payer Name Payer Address Payer Phone Subscriber Number Group Number Insured Name Patient Relationship to Insured Coverage Start Date Coverage End Date A[employer] [address] [place] [address] [id number] NORMA MARQUEZ Spouse - patient is the spouse of the insured
--- OUTSIDE RECORDS SUMMARY | 2025-05-24 02:44 | XMS_ITS | Clinical Summary ---
Author Organization [facility] Address [address] [place] [address] Care Team Providers Care Hooker Inspector Name Role Phone Aura Juan MD Primary Care Provider [phone] Allergies Active Allergy Reactions Criticality Noted Date Comments Penicillins Unknown 10/03/2019 Told had reaction as child. Sulfa Antibiotics Rash Low 04/10/2025 Medications No known medications Active Problems Problem Noted Date Diagnosed Date Focal nodular hyperplasia of liver 04/10/2025 Overview (04/10/2025): Pt had us /CT and MRI in 2019 which showed 3.1cm liver mass Encounters Date Type Department Care Team Description 05/03/2025 Results Follow-Up [facility] Family & Internal Medicine [address] [address] Aura Juan MD US ABD LIMITED 05/01/2025 7:51 AM CDT - 05/01/2025 11:59 PM CDT Hospital Encounter [facility] [address] [place] [address] [phone] Aura Juan MD Discharge Disposition: Home or Self Care (Routine Discharge) 05/01/2025 Travel 04/24/2025 Results Follow-Up [facility] Family & Internal Medicine [address] [address] Aura Juan MD CBC W/DIFF AUTOMATED, COMPREHENSIVE METABOLIC PANEL, HEMOGLOBIN, GLYCOSYLATED, Additional followed-up results: 2 04/18/2025 Scan [facility] SRVCS Scanned, [facility] 04/10/2025 10:20 AM CDT Office Visit [facility] Family & Internal Medicine [facility] [address] [place] [address] Aura Juan MD New Patient ([facility] care, had mamm done; getting biopsy done 04/13/25) 04/10/2025 Travel 03/17/2025 8:29 AM CDT - 03/17/2025 11:59 PM CDT Hospital Encounter [facility] [address] [place] [address] Carina Philippe MD Discharge Disposition: Home or Self Care (Routine Discharge) 03/17/2025 Travel from Last 3 Months Immunizations Immunization [...] PM CDT 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 Gender Identity Female 04/10/2025 10:29 AM CDT [...] Description 04/10/2026 10:00 AM CDT Office Visit [facility] Family & Internal Medicine - [place] [address] [place] [address] [place] [address] [facility] [address] [place] [address] Health Maintenance Due Date Last [...] Td or Tdap) 04/10/2035 04/10/2025 PHQ-2 (Physician Hettinger) Completed 04/10/2025 Meningococcal B Vaccine Aged Out [...] MG DIAG W JENNIFER LT DIGI Routine 10:17 AM CDT Abnormal mammogram US BREAST LT BIRAD LTD Routine 5 9:49 AM CDT Abnormal mammogram from Last 3 Months Results * [...] 8:10 AM Narrative 05/03/2025 8:20 AM CDT [facility] [address] [place] [address] Procedure(s): US ABD LIMITED Date of service: [...] Procedure Note Avery Kraus MD - 05/03/2025 [facility] [address] [place] [address] Procedure(s): US ABD LIMITED Date of service: [...] (04/21/2025 12:42 PM CDT) TSH 1.96 mIU/L [facility] Comment: Reference Range > or = 20 Years 0.40-4.50 Ranges First trimester 0.26-2.66 Second trimester 0.55-2.73 Third trimester 0.43-2.91 04/21/2025 12:4 2 PM CDT 04/21/2025 12:43 PM CDT Narrative [facility] [place] [facility] - 04/22/2025 4:59 AM CDT FASTING:NO FASTING: NO Resulting Agency Comment Performing Organization Information: Site ID: [place] Name: [facility] Address: [address] [address] Director: Derek Jj MD Aura Juan MD LABORATORY Final Result Performing Organization Address City/[facility]/ZIP Co de Phone Number WOLF ZAMORA [facility] [address] [address], * HEMOGLOBIN, GLYCOSYLATED (04/21/2025 12:42 PM CDT) HGB A1C 5.3 <5.7 % of total Hgb [facility] ([facility])[place] Comment: For the purpose of screening for the presence of diabetes: <5.7% Consistent with the absence of diabetes 5.7-6.4% Consistent with increased risk for diabetes (prediabetes) > or =6.5% Consistent with diabetes This assay result is consistent with a decreased risk of diabetes. Currently, no consensus exists regarding use of hemoglobin A1c for diagnosis of diabetes in children. According to [place] Diabetes Association (ADA) guidelines, hemoglobin A1c <7.0% represents optimal control in non- diabetic patients. Different metrics may apply to specific patient populations. Standards of Medical Care in Diabetes(ADA). 04/21/2025 12:4 2 PM CDT 04/21/2025 12:43 PM CDT Narrative [facility] [place] - 04/22/2025 4:59 AM CDT FASTING:NO FASTING: NO Resulting Agency Comment Performing Organization Information: Site ID: [place] [facility] Address: [address] [place] [address] Director: Derek Jj Aura Juan MD LABORATORY Final Result Performing Organization Address City/[facility]/ZIP Co de Phone Number [facility] Jono NEVAREZ [facility], [place] [address] [place] [address], * (ABNORMAL) COMPREHENSIVE METABOLIC PANEL (04/21/2025 12:42 PM CDT) GLUCOSE 78 65 - 99 mg/dL [facility] Comment: Fasting reference interval BUN 16 7 - 25 mg/dL [facility] CREATININE S/P/B 0.79 0.50 - 0.99 mg/dL [facility] GFR ESTIMATE 93 > OR = 60 mL/min/1. 73m2 [facility] BUN CREATININE RATIO SEE NOTE: 6 - 22 (calc) [facility] Comment: Not Reported: BUN and Creatinine are within reference range. SODIUM S/P/B 137 135 - 146 mmol/L [facility] POTASSIUM S/P/B 4.1 3.5 - 5.3 mmol/L [facility] CHLORIDE S/P/B 102 98 - 110 mmol/L [facility] CO2 28 20 - 32 mmol/L [facility] CALCIUM S/P/B 8.9 8.6 - 10.2 mg/dL [facility] TOTAL PROTEIN S/P/B 6.7 6.1 - 8.1 g/dL [facility] ALBUMIN S/P/B 4.2 3.6 - 5.1 g/dL [facility] [[email or web address]] [facility] GLOBULIN 2.5 1.9 - 3.7 g/dL (calc) [facility] ALBUMIN/GLOBULI N RATIO 1.7 1.0 - 2.5 (calc) [facility] BILIRUBIN TOTAL S/P/B 0.4 0.2 - 1.2 mg/dL [facility] ALKALINE PHOSPHATASE S/P/B 105 31 - 125 U/L [facility] AST 39(H) 10 - 35 U/L [facility] ALT 49(H) 6 - 29 U/L [facility] 04/21/2025 12:4 2 PM CDT 04/21/2025 12:43 PM CDT Narrative [facility] [place] [facility] - 04/22/2025 4:59 AM CDT FASTING:NO FASTING: NO Resulting Agency Comment Performing Organization Information: Site ID: [place] Name: [facility] Address: [address] [address] Director: Derek Jj MD Aura Juan MD LABORATORY Final Result [facility] [place] [facility] [address] [facility] [place] [address], * LIPID PANEL (04/21/2025 12:42 PM CDT) [facility] CHOLESTEROL 168 <200 mg/dL [facility] HDL 66 > OR = 50 mg/dL [facility] TRIGLYCERIDES 74 <150 mg/dL [facility] LDL (CALCULATED) 86 mg/dL (calc) [facility] Comment: Reference range: <100 Desirable range <100 mg/dL for primary prevention; <70 mg/dL for patients with CHD or diabetic patients with > or = 2 CHD risk factors. LDL-C is now calculated using the Erik calculation, which is a validated novel method providing better accuracy than the Friedewald equation in the estimation of LDL-C. Sergey SS et al. JEANNIE. 2013;310(19): 3042-9826 (http://education.[employer]/faq/QLL547) CHOL/HDL RATIO 2.5 <5.0 (calc) [facility] NON HDL CHOLESTEROL 102 <130 mg/dL (calc) [facility] Comment: For patients with diabetes plus 1 major ASCVD risk factor, treating to a non-HDL-C goal of <100 mg/dL (LDL-C of <70 mg/dL) is considered a therapeutic option. 04/21/2025 12:4 2 PM CDT 04/21/2025 12:43 PM CDT Narrative [facility] [[email or web address]] [facility] ZAMORA - 04/22/2025 4:59 AM CDT FASTING:NO FASTING: NO Resulting Agency Comment Performing Organization Information: Site ID: [place] Name: [facility] Address: [address] [facility] [place] [address] Director: Derek Jj MD Aura Juan MD LABORATORY Final Result [facility]OL[facility] NEVAREZ [facility] [address] [facility] [place] [address], * (ABNORMAL) CBC W/DIFF AUTOMATED (04/21/2025 12:42 PM CDT) WBC 8.8 3.8 - 10.8 Thousand/ uL [facility] [[email or web address]] [facility] RBC 4.29 3.80 - 5.10 Million/u L [facility] [[email or web address]] [facility] HGB 13.0 11.7 - 15.5 g/dL [facility] [[email or web address]] [facility] HCT 40.8 35.0 - 45.0 % [facility] KAY MCV 95.1 80.0 - 100.0 fL [facility] [[email or web address]] [facility] MCH 30.3 27.0 - 33.0 pg [facility] MCHC 31.9(L) 32.0 - 36.0 g/dL [facility] Comment: For adults, a slight decrease in the calculated MCHC value (in the range of 30 to 32 g/dL) is most likely not clinically significant; however, it should be interpreted with caution in correlation with other red cell parameters and the patient's clinical condition. RDW 12.0 11.0 - 15.0 % [facility] [[email or web address]] [facility] PLT 273 140 - 400 Thousand/ uL [facility] [[email or web address]] [facility] MPV 10.6 7.5 - 12.5 fL [facility] ABS. NEUTROPHILS 5,729 1,500 - 7,800 cells/uL [facility] [[email or web address]] [facility] ABS. LYMPHOCYTES 2,350 850 - 3,900 cells/uL [facility] ABS. MONOCYTES 519 200 - 950 cells/uL [facility] ABS. EOSINOPHILS 141 15 - 500 cells/uL [facility] ABS. BASOPHILS 62 0 - 200 cells/uL [facility] SEG NEUTROPHILS 65.1 % [facility] LYMPHOCYTES 26.7 % [facility] MONOCYTES 5.9 % [facility] EOSINOPHILS 1.6 % [facility] BASOPHILS 0.7 % [facility] [place] 04/21/2025 12:4 2 PM CDT 04/21/2025 12:43 PM CDT Narrative [facility] [place] [facility] - 04/22/2025 4:59 AM CDT FASTING:NO FASTING: NO Resulting Agency Comment Performing Organization Information: Site ID: [place] Name: [facility] Address: [address] [address] Director: Derek Jj MD Aura Juan MD LABORATORY Final Result [facility] [place] [address] [address], [place] * MG DIAG W JENNIFER LT [...] 3:23 PM Narrative 03/17/2025 3:28 PM CDT [facility] [address] [place] [address] EXAMINATION: Digital left diagnostic mammogram with 3-D [...] Final Resu lt * US BREAST LT Jugo LTD (03/17/2025 9:49 AM CDT) Anatomical Region [...] 3:23 PM Narrative 03/19/2025 6:49 AM CDT [place] [id number] EXAMINATION: Digital left diagnostic mammogram with 3-D [...] Carina Capellan MD ULTRASOUND Final Resu lt from Last 3 Months [facility] Care Teams Hooker Inspector Relationship Specialty [place] [id number] [address] PCP - General INTERNAL MEDICINE 04/07/25
--- OUTSIDE RECORDS SUMMARY | 2025-05-24 02:44 | XMS_ITS | Clinical Summary ---
Author Organization [facility] Address [address] [facility] [place] [address] Care Team Providers Care Corporate Development Officer Name Role Phone Unavailable Primary Care Provider Unavailabl e Source Comments [facility],non-owned Affiliates and Associated Physician Practices is amultiple site organization consisting of ambulatory clinics and hospital sitesin [place], [place], [place] and [place]. This disclosure is being madepursuant to the Care Everywhere program and may not contain all information available regarding this patient. 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 Gender Identity Not on file Sexual Orientation Not on file Last Filed Vital Signs Vital Sign Reading Time Taken Comments Blood Pressure 120/80 10/03/2019 4:48 PM PUBLIC SAFETY TEACHER Pulse 83 10/03/2019 4:48 PM PUBLIC SAFETY TEACHER Temperature 36.6 C (97.9 F) 10/03/2019 4:48 PM PUBLIC SAFETY TEACHER Respiratory Rate 16 10/03/2019 4:48 PM PUBLIC SAFETY TEACHER Oxygen Saturation 99% 10/03/2019 4:48 PM PUBLIC SAFETY TEACHER Inhaled Oxygen Concentration - - Weight 72.6 kg (160 lb) 10/03/2019 4:48 PM PUBLIC SAFETY TEACHER Height 162.6 cm (5' 4) 10/03/2019 4:48 PM PUBLIC SAFETY TEACHER Body Mass Index 27.46 10/03/2019 4:48 PM PUBLIC SAFETY TEACHER Plan of Treatment Health Maintenance Due Date [...]
--- NOTE | 2025-05-24 07:07 | WPDHPUPDATE1 ---
History and Physical Update Update Date/Time: 05/24/25 07:07 - left breast lumpectomy with magnetic seed localization and possible adjacent tissue transfer. History and Physical has been reviewed, including an updated exam of the patient. There are NO changes in the patient's condition. Risks, benefits, and alternatives have been discussed and questions answered. Patient agrees to proceed with procedure.
[2025-05-24] MEDS: ACETAMINOPHEN 500 MG TABLET 1000 MG PO (07:35)
[2025-05-24] MEDS: LACTATED RINGERS 1,000 ML 30 ML IV CONT ×2 (07:40→09:49)
--- NOTE | 2025-05-24 08:05 | WPDANESEPPF ---
Anes - Initial Pre Proc Eval Procedure: Operation Date: 05/24/25 08:30 Proposed Procedures p Left Breast Lumpectomy with Mag Seed Localization, Possible Adjacent Tissue Transfer - Tania Beverly MD Date/Time: 05/24/25 08:05 Surgeon: Tania Beverly MD Pre Op Diagnosis: unspec lump left breast Patient Data Age: 45 Gender: F Height: 1.63 m Weight: 75 kg Allergies Allergy/AdvReac Type Severity Reaction Status Date / Time Penicillins AdvReac Mild Rash Verified 05/24/25 07:22 Sulfa (Sulfonamide AdvReac Mild rash Verified 05/24/25 07:22 Antibiotics) Home Medications ?Medication ?Instructions ?Recorded ?Confirmed ?Type hydrocodone 5 mg-acetaminophen 325 1 tablet PO Q6H PRN pain #12 tabs 05/24/25 Rx mg tablet Patient hx anesthesia problems: none Family hx anesthesia problems: none Results Review: All pre-operative results and documents have been reviewed as part of the pre-operative evaluation. [facility] Past Medical History Medical History Focal nodular hyperplasia of liver Family History Family History Mother Family history of endocrine disorder Grandparent Family history of osteoporosis Family history of Parkinson's disease Father Hypertension Malignant neoplasm of prostate Social History Social History Smoking status: Never smoker Second hand tobacco smoke exposure: No Alcohol intake: current Drinks per week: 1 Substance use: never Substance use type: does not use Do You Feel Safe in your Home?: Yes Lack of Transportation: No Lack of Food: Never True Current Housing: I Have Housing Concerned About Future Housing: No Difficulty Paying Gas/Electric Bills: No Difficulty Paying for Meds: No Currently Unemployed: No Education: Master's Degree or Higher Difficulty w/ Childcare or Family Care: No Living arrangements: with family 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/Education: occupation 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 Gender identity (if verbalized by the patient): Female Sexual Orientation (if Verbalized by the Patient): Straight or Heterosexual Spiritual care concerns: No Agree to blood products: Yes Anes - Eval Final PreProcedure Day of Procedure 05/24/25 08:05 Patient weight: normal Lungs: normal air movement Airway: Mallampati scale class II Neurological: alert and oriented Last oral intake: >/= 8 hours ASA classification: I Emergent: no Anesthetic plan: proceed Anesthesia type and monitoring: general LMA and standard monitoring Results Review: All pre-operative results and documents have been reviewed as part of the pre-operative evaluation. Healthy, pt can walk 1 mile, no cp or sob. Informed Consent: The patient's anesthetic plan and its attendant risks and benefits were discussed with the patient/family/POA. Questions were solicited and answers provided to the satisfaction of the patient/family/POA.
[2025-05-24 08:15] LABS: BEDSIDEPREGUCG Negative (Negative)
[2025-05-24] MEDS: ceFAZolin 2 GM in SODIUM CHLORIDE 0.9% IV 50 ML 100 ML IVPB (08:34)
[2025-05-24] MEDS: BUPIVACAINE/EPINEPHRINE 0.5% 30 ML VIAL 15 ML INFILTRATE (09:04)
--- NOTE | 2025-05-24 09:21 | S_PTH ---
PATIENT: Sharlene Nicholas LOC: [facility] U#:[id number] AGE/SX: 45/F ROOM: RE05/24/[address]: Tania Beverly MD : 1980 BED: DIS: 05/24/2025 SPEC #: [id number] RECD: 05/24/25 09:27 STATUS: RENATE PALOMARES #: [id number] SERA: 05/24/25 09:[address]: Tania Beverly DEPT: [facility] Surgical RECD BY: Carey Ford ENTERED: 05/24/25 09:27 SP TYPE: Surgical OTHR DR: Aura Mcbride, Tissues: A - Breast Lumpectomy Procedures: Hematoxylin and Eosin Stain Gross and Microscopic Level 5
--- NOTE | 2025-05-24 09:38 | P.OP_ITS ---
Procedure Note - Detailed Date of Procedure 05/24/25 Pre-op Diagnosis Left breast mass at 6 o'clock position, discordant path report with core needle biopsy Post-op Diagnosis Same Procedure Performed Left breast lumpectomy with magseed localization Surgeon Tania Beverly MD Anesthesia General Description of Procedure Patient was identified in the pre-operative area and brought to the OR suite. She underwent tumor localization previously by IR with magseed placement. She was laid supine in the operating table and sequential compression devices were applied. General anesthesia was induced without difficulties. The left chest was prepped and draped in a sterile fashion. The sentimag probe was used to identify the area where the magseed was placed and a superior periareolar incision was made. Dissection was carried down through the subcutaneous tissue into the breast tissue. The tumor was identified with palpation and using sentimag probe, and a rim of normal breast tissue was excised along with the tumor as our lumpectomy specimen. Once the specimen was completely excised, it was oriented using surgical paint according to lens generating machine tender instructions. The specimen was placed in the faxitron and radiograph was obtained and sent to Radiology for radiographic confirmation of Tumor, biopsy marker and magseed within the specimen. Once the radiographic confirmation was received, the wound was irrigated with saline and hemostasis was assured. The deep dermal layer was approximated using interrupted 3-0 vicryl followed by 4-0 monocryl for the skin. Dermabond was applied followed by a surgical bra. Patient was awoken from anesthesia and taken to the recovery area in stable condition. All needles, instruments and sponge counts were correct as reported by the operating room staff. Patient tolerated the procedure well with no immediate complications. Estimated Blood Loss 5 Pathology Yes Complications No immediate complications Condition Stable Disposition PACU [facility] Billing Surgery - Charge Forward: Surgery Billing (CPT 76864)
== END 2025-05-24 11:18 | disposition home or self-care (01) ==
PROVIDERS: PCP Internal Medicine; Visit Provider Surgery
PROC: (CPT 19301; principal; 2025-05-24 08:30)
DX: N63.25 Unspecified lump in the left breast, overlapping quadrants (principal); D24.2 Benign neoplasm of left breast; N60.22 Fibroadenosis of left breast
CPT/HCPCS: 19301; 76098; 88307; J0690; A9270; J1100; J2003; J2250; J2405; J2704; J3010; J7120; Q9968